=== PATIENT | female | born 1930 | race Caucasian/White ===

== ENCOUNTER 2016-12-22 23:00 | Emergency (ER) | payer MEDICARE, OTHER ==
[~2016-12-22] VITALS: Ht 152.4 cm; Wt 58.0 kg
[2016-12-22 23:18] VITALS: Ht 152.4 cm; Wt 58.0 kg
[2016-12-23 01:00] VITALS: TEMP 97.9
--- NOTE | 2016-12-23 01:18 | RADRPT ---
PROCEDURE: XR Chest. CLINICAL INDICATION: Chest Pain. TECHNIQUE: Single frontal chest x-ray. COMPARISON: None. FINDINGS: Portable AP technique accentuates the size of the cardiac silhouette. The heart does not appear to b e grossly enlarged. There is minimal prominence of the lung interstitium likely minimal chronic melo ges. Calcification in thoracic aorta. Degenerative changes in thoracic spine, shoulders and acromi oclavicular joints. ECG leads are projected over the chest. Linear atelectasis/fibrosis in left low er lung laterally. IMPRESSION: No definite acute abnormality seen. Please see above. RPTAT: HJES .Conrado Lew MD, MD Date Time Electronically viewed and signed by .Conrado Lew MD, MD on 12/23/2016 01:18 .S/
[2016-12-23 01:45] LABS: BASOPHILS % 0.4 % (0.0-2.0); EOSINOPHILS # 0.2 10^3/ul (0.0-0.5); EOSINOPHILS % 2.3 % (0.0-7.0); HEMATOCRIT 43.4 % (37.0-47.0); HEMOGLOBIN 14.6 g/dl (12.0-16.0); LYMPHOCYTES # 2.5 10^3/ul (0.8-2.9); LYMPHOCYTES % 28.7 % (15.0-51.0); MEAN CORPUSCULAR HEMOGLOBIN 28.8 pg (29.0-33.0); MEAN CORPUSCULAR HGB CONC 33.6 g/dl (32.0-37.0); MEAN CORPUSCULAR VOLUME 85.6 fl (82.0-101.0); MEAN PLATELET VOLUME 8.2 fl (7.4-10.4); MONOCYTE # 0.7 10^3/ul (0.3-0.9); MONOCYTES % 8.2 % (0.0-11.0); NEUTROPHIL # 5.2 10^3/ul (1.6-7.5); NEUTROPHILS % 60.4 % (39.0-77.0); PLATELET COUNT 271 10^3/UL (140-440); RED BLOOD COUNT 5.07 10^6/ul (4.20-5.40); RED CELL DISTRIBUTION WIDTH 13.8 % (11.5-14.5); UNCORRECTED WBC 8.6 10^3/ul (4.8-10.8); WHITE BLOOD COUNT 8.6 10^3/ul (4.8-10.8)
[2016-12-23 01:47] LABS: CHLORIDE 104 mmol/L (97-110); SODIUM 146 mmol/L (135-144)
[2016-12-23 01:48] LABS: CONDITION 1; INR 0.91; PARTIAL THROMBOPLASTIN TIME 30.9 Sec (25.0-35.0); PROTIME 12.2 Sec (12.2-14.2)
[2016-12-23 01:50] LABS: ANION GAP 18 (8-16); BLOOD UREA NITROGEN 18 mg/dl (7-20); CARBON DIOXIDE 28 mmol/L (21-31); CREATININE 0.67 mg/dl (0.44-1.00)
[2016-12-23 01:51] LABS: CALCIUM 10.3 mg/dl (8.4-10.2); GLUCOSE 105 mg/dl (70-220)
[2016-12-23] MEDS ORDERED: ONDANSETRON 4 MG INJ IV STA (01:55)
[2016-12-23] MEDS ORDERED: CEFAZOLIN 1 GM/50 ML (PMX) 50 ML IVPB SCH (02:00)
[2016-12-23] MEDS ORDERED: LABETALOL HCL 20MG INJ IV ONE (02:00)
[2016-12-23 02:24] LABS: TROPONIN-I < 0.012 ng/ml (0.00-0.12)
[2016-12-23] MEDS ORDERED: ACETAMINOPHEN 325 MG TAB PO ONE (02:30)
--- NOTE | 2016-12-23 02:44 | RADRPT ---
PROCEDURE: CT head, without contrast. CLINICAL INDICATION: Severe hypertension with headache. TECHNIQUE: Noncontrast CT examination of the head, with axial, sagittal and coronal reformatted im ages. Automated dose exposure control was employed. CTDI: 42.69 mGy and DLP: 720.23 mGy-cm. COMPARISON: None. 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 No acute hemorrhage. Subarachnoid spaces are substantially preserved and symmetric. Ventricles ar e unremarkable. No mass effect. Castano-white matter distinction is preserved without evident decreased attenuation t o suggest acute or recent infarct. Sinuses and osseous structures are unremarkable. IMPRESSION: Chronic changes of atrophy and small vessel disease white matter, and otherwise, no acute process in the head. RPTAT: [facility] Physician Deb Date Time Electronically viewed and signed by Physician Deb on 12/23/2016 02:43 RS/
[2016-12-23 03:01] VITALS: BP 171/73; PULSE 56; RESP 14
[2016-12-23] MEDS ORDERED: AMLO-147 PO (03:19)
[2016-12-23] MEDS ORDERED: AMLODIPINE 10 MG TAB PO ONE (03:30)
--- NOTE | 2016-12-23 05:42 | ERD ---
ER Documentation Chief Complaint Date/Time DATE: 12/23/16 TIME: 05:30 Chief Complaint HTN HPI This 86-year-old female presents with a headache and high blood pressure. States that she gets a headache like this whenever she has high blood pressure. UA she takes Tylenol. She is on her normal blood pressure check medication of clonidine patch as well as lisinopril. She takes no other blood pressure medication. Headache is been increasing gradually fell last day and is generalized in nature. Is no chest pain shortness of breath or dizziness. ROS All systems reviewed and are negative except as per history of present illness. Medications Home Meds Active Scripts Amlodipine Besylate* (Amlodipine Besylate*) 10 Mg Tablet, 10 MG PO DAILY, #30 TAB Prov:JUSTYNAYVONNERADHA 12/23/16 Allergies Allergies: Coded Allergies: No Known Allergy (Unverified , 12/22/16) PMhx/Soc History of Surgery: Yes (GALLBLADDER REMOVAL) Anesthesia Reaction: No Hx Neurological Disorder: No Hx Respiratory Disorders: No Hx Psychiatric Problems: No Hx Miscellaneous Medical Probl: No Hx Alcohol Use: No Hx Substance Use: No Hx Tobacco Use: No Smoking Status: Never smoker Physical Exam Vitals Vital Signs Date Time Temp Pulse Resp B/P Pulse Ox O2 Delivery O2 Flow Rate FiO2 12/23/16 03:01 56 14 171/73 Nasal Cannula 2.0 12/23/16 02:01 59 17 173/73 Nasal Cannula 2.0 12/23/16 01:00 97.9 58 18 233/82 97 Nasal Cannula 2.0 12/23/16 01:00 Nasal Cannula 2 12/22/16 23:18 97.7 73 18 234/95 97 Physical Exam Const: [] No acute distress Head: Atraumatic , LILIANA, EOMI Eyes: Normal Conjunctiva ENT: Normal External Ears, Nose and Mouth. Neck: Full range of motion..~ No meningismus. Resp: Clear to auscultation bilaterally Cardio: Regular rate and rhythm, no murmurs Abd: Soft, non tender, non distended. Normal bowel sounds Skin: No petechiae or rashes Back: No midline or flank tenderness Ext: No cyanosis, or edema Neur: Awake and alert and oriented 3, greatest 2 through 12 intact, no cerebellar deficits, normal gait. Psych: Normal Mood and Affect Result Diagram: 12/23/16 0108 12/23/16 0108 Results 24 hrs Laboratory Tests Test 12/23/16 01:08 Activated Partial Thromboplast Time 30.9Sec Anion Gap 18 Basophils # 0.010^3/ul Basophils % 0.4% Blood Morphology Comment Blood Urea Nitrogen 18mg/dl Calcium Level 10.3mg/dl Carbon Dioxide Level 28mmol/L Chloride Level 104mmol/L Creatinine 0.67mg/dl Eosinophils # 0.210^3/ul Eosinophils % 2.3% Glucose Level 105mg/dl Hematocrit 43.4% Hemoglobin 14.6g/dl INR International Normalized Ratio 0.91 Lymphocytes # 2.510^3/ul Lymphocytes % 28.7% Mean Corpuscular Hemoglobin 28.8pg Mean Corpuscular Hemoglobin Concent 33.6g/dl Mean Corpuscular Volume 85.6fl Mean Platelet Volume 8.2fl Monocytes # 0.710^3/ul Monocytes % 8.2% Neutrophils # 5.210^3/ul Neutrophils % 60.4% Nucleated Red Blood Cells # 0.010^3/ul Nucleated Red Blood Cells % 0.0/100WBC Platelet Count 96200^3/UL Potassium Level 4.0mmol/L Prothrombin Time 12.2Sec Prothrombin Time Ratio 1.0 Red Blood Count 5.0710^6/ul Red Cell Distribution Width 13.8% Sodium Level 146mmol/L Troponin I < 0.012ng/ml White Blood Count 8.610^3/ul Current Medications Medications (Trade) Dose Ordered Sig/Lauren Route PRN Reason Start Time Stop Time Status Last Admin Dose Admin Labetalol HCl 20 mg 20 mg ONCE ONCE IV 12/23/16 02:00 12/23/16 02:01 DC 12/23/16 01:44 Cefazolin Sodium (Ancef 1 Gm/50 ml (Pmx)) 50 ml @ 100 mls/hr ONCE IVPB 12/23/16 02:00 12/23/16 02:14 DC Ondansetron HCl (Zofran Inj) 4 mg ONCE STAT IV 12/23/16 01:55 12/23/16 02:14 DC Acetaminophen (Tylenol Tab) 650 mg ONCE ONCE PO 12/23/16 02:30 12/23/16 02:31 DC 12/23/16 02:58 Amlodipine Besylate (Norvasc) 10 mg ONCE ONCE PO 12/23/16 03:30 12/23/16 03:31 DC 12/23/16 03:43 Procedures/MDM 86-year-old female with history of high blood pressure and hypertensive crisis with significant headache. Cardiac workup was performed because of patient's age and risk factors, CT head was negative for any hemorrhage. Subarachnoid hemorrhage is unlikely as patient had a gradual onset headache. She is placed on a monitor IV was started she was given labetalol for acute lowering of her blood pressure with evidence of end organ dysfunction. Headache was significantly decreased after blood pressure was lowered from 235 systolic to 171 systolic. Diastolic had not been elevated did not change significantly. Patient was then given a 650 mg Tylenol which also helped reduce her headache. Gave her a tablet amlodipine in the emergency room to prevent return of hypertension after labetalol wears off. She was monitored for over an hour after labetalol to make sure the blood pressure did not go to low. I am also discharging with amlodipine and instructions to see her primary care doctor first thing on Sunday for adjustment of her antihypertensive regimen. Also printed all her laboratories for her to take with her. She had no signs of ischemia on her EKG. EKG interpretation: Normal sinus rhythm rate of 69, left axis deviation, no ST- T wave changes concerning for acute ischemia, normal intervals, normal EKG. Cardio monitor interpretation: Normal sinus rhythm without arrhythmia Chest x-ray interpretation: No acute process, no infiltrate, no widened mediastinum, no pulmonary edema, no acute fractures Gout care time 33 minutes: This includes treatment of hypertensive crisis, use of vasoactive medication labetalol, multiple visits to the patient's bedside to reassess status after such medication was given, chart review, ekg monitor EKG interpretation, administration of amlodipine, extended monitoring for signs of treatment failure her hypotension, discussion with patient and family. Is not including the procedures Departure Diagnosis: Primary Impression: Accelerated hypertension Additional Impression: Acute headache Condition: Stable Patient Instructions: Headache, Unspecified, Hypertension, Established, Out Of Control Additional Instructions: Call your primary care doctor TOMORROW for an appointment during the next 2-3 days.See the doctor sooner or return here if your condition worsens before your appointment time. RADHA JANSEN DO Dec 23, 2016 05:40
== END 2016-12-23 03:54 | disposition home or self-care (01) ==
LOC: E/R 23:00
DX: I10 Essential (primary) hypertension (principal); R07.9 Chest pain, unspecified
CPT/HCPCS: 36415; 70450; 71010; 80048; 84484; 85025; 85610; 85730; 93005; 96374